=== PATIENT | female | born 1995 | race African-American/Black ===

== ENCOUNTER 2017-08-07 00:10 | Emergency (ER) | payer OTHER ==
[2017-08-07 00:18] VITALS: BP 103/69
--- NOTE | 2017-08-10 10:59 | DR.GENAD ---
HPI - PCP Primary Care Physician: NFD - Complaint/Symptoms Chief Complaint:: OUT BREAK AROUND MOUTH; NO PRIOR HX Self Treatment fo Chief Complaint: NO TX - Source History Provided: Patient - Mode of Arrival Mode of Arrival: Ambulatory - Timing Onset of Chief Complaint: 08/05/17 PMH - PMH Past Medical History: No Past Surgical History: No Surgical History: No History - Family History History of Family Medical Conditions: No - Social History Does patient currently use any type of tobacco product: No Have you used tobacco products in the last 12 months: No Type of Tobacco Use: None Alcohol Use: None Do you use any recreational Drugs:: No Lives With: Alone Lives Where: Home - infectious screening In the last 2 months have you had wt loss of >10#?: NO Have you had fever, night sweats or hemotysis?: No Have you traveled outside the country in the last 6 months?: No Isolation: Standard PE - Vital Signs Vitals: Temperature 98.8 F Pulse Rate 74 Respiratory Rate 20 Blood Pressure 103/69 O2 Sat by Pulse Oximetry 99 - Discharge Plan Disposition: LWBS After Triage Condition: Stable - Follow ups/Referrals Follow ups/Referrals: NFD,None [Primary Care Provider] - 3 days - Instructions
== END 2017-08-07 01:08 | disposition left against medical advice (07) ==
LOC: ER 00:10
DX: K13.79 Other lesions of oral mucosa (principal)
CPT/HCPCS: 99281

== ENCOUNTER 2017-09-07 10:17 | Emergency (ER) | payer OTHER ==
[2017-09-07] MEDS ORDERED: NS 1000 ML 1,000 ML ONE (10:28)
[2017-09-07] MEDS ORDERED: TORADOL 30 MG VIAL ONE (10:28)
--- NOTE | 2017-09-07 10:30 | DR.GENAD ---
HPI - PCP Primary Care Physician: NFD - Complaint/Symptoms Chief Complaint Doctors Comments: Patient states that she has had nausea for three days no vomiting. LMP two weeks ago and normal. PMH neg. Works at [employer]. Admits cigarettes of four per day, denies alcohol or street drugs. Chief Complaint:: PATIENT STATED THAT SHE HAS BEEN VOMITING AND HAVING DIARRHEA FOR THE LAST TWO DAYS. SHE IS NAUSEA AND HAVING ABD. PAIN THAT SHE RATES A 8 ON THE PAIN SCALE. SHE STATE THAT SHE IS UNABLE TO EAT DUE TO BEING SICK AND SHE BELIEVES SHE HAS A VIRUS. - Source History Provided: Patient - Mode of Arrival Mode of Arrival: Ambulatory - Timing Onset of Chief Complaint: 09/05/17 PMH - PMH Past Medical History: No Past Surgical History: No Surgical History: No History - Family History History of Family Medical Conditions: No - Social History Type of Tobacco Use: Cigarettes Does any household member use tobacco: No Alcohol Use: None Do you use any recreational Drugs:: No Lives With: Family Lives Where: Home - infectious screening In the last 2 months have you had wt loss of >10#?: NO Have you had fever, night sweats or hemotysis?: No Have you traveled outside the country in the last 6 months?: No Isolation: Standard ROS - Review of Systems Eyes: No Symptoms Reported ENTM: No Symptoms Reported Respiratoy: No Symptoms Reported Cardiovascular: No Symptoms Reported Gastrointestinal/Abdominal: Abdominal Pain, Diarrhea, Nausea. negative: Vomiting, Food Intolerance Genitourinary: negative: Discharge, Dysuria, Frequency Neurological: No Symptoms Reported Musculoskeletal: No Symptoms Reported, See HPI Integumentary: No Symptoms Reported Hematologic/Lymphatic: No Symptoms Reported Endocrine: No Symptoms Reported Psychiatric: No Symptoms Reported All Other Systems: Reviewed and Negative PE - Vital Signs Vitals: Temperature 98.1 F Pulse Rate 111 Respiratory Rate 20 Blood Pressure 114/75 O2 Sat by Pulse Oximetry 100 - General Limitations: No Limitations General Appearance: Alert, In No Apparent Distress - Head Head Exam: Normal Inspection, Atraumatic - Eyes Eye exam: Normal Appearance, PERRL, EOMI - ENT ENT Exam: Normal Exam External Ear Exam: Normal External Inspection TM/Canal Exam: Bilateral Normal Nose Exam: Normal Nose Exam Mouth Exam: Normal Inspection Throat Exam: Normal Inspection - Neck Neck Exam: Normal Inspection - Respiratory Respiratory Exam: Normal Lung Sounds Bilat Respiratory Exam: Bilateral Clear to Auscultation - Cardiovascular Cardiovascular Exam: Regular Rate, Normal Rhythm - Abdominal Exam Abdominal Exam: Normal Inspection, Normal Bowel Sounds, Soft Abdominal Tenderness: Suprapubic - Extremities Extremities Exam: Normal Inspection, Full ROM - Neurologic Neurological Exam: Alert, Oriented X3, CN II-XII Intact - Psychiatric Psychiatric Exam: Normal Affect - Skin Skin Exam: Warm, Dry, Intact Course - Reevaluation 1st: Unchanged - Education/Counseling Educated On: Treatment, Diagnosis, Prognosis, Needs for Follow Up ROR - Labs Reviewed Laboratory Results Reviewed?: Yes (Influenza negative; low potassium) Result Diagrams: 09/07/17 10:55 09/07/17 10:55 Laboratory: WBC 6.3 X10^3/uL (3.6-10.0) 09/07/17 10:55 RBC 4.54 X10^6/uL (3.5-5.4) 09/07/17 10:55 Hgb 11.8 g/dL (12.0-16.0) L 09/07/17 10:55 Hct 35.9 % (36.0-47.0) L 09/07/17 10:55 MCV 79.1 fL (80.0-100.0) L 09/07/17 10:55 MCH 26.0 pg (27.0-34.0) L 09/07/17 10:55 MCHC 32.9 g/dL (33.0-35.0) L 09/07/17 10:55 RDW 16.9 % (11.6-16.5) H 09/07/17 10:55 Plt Count 294 X10^3/uL (150.0-450.0) 09/07/17 10:55 MPV 7.5 fL (7.4-11.0) 09/07/17 10:55 Neut % 66.9 % (42.0-75.0) 09/07/17 10:55 Lymph % 22.1 % (21.0-51.0) 09/07/17 10:55 Pettis % 9.6 % (0.0-13.0) 09/07/17 10:55 Eos % 1.2 % (0.9-2.9) 09/07/17 10:55 Baso % 0.2 % (0.2-1.0) 09/07/17 10:55 Neut # 4.2 x10^3/uL (2.2-4.8) 09/07/17 10:55 Lymph # 1.4 X10^3/uL (1.3-2.9) 09/07/17 10:55 Pettis # 0.6 x10^3/uL (0.3-0.8) 09/07/17 10:55 Eos # 0.1 x10^3/uL (0.0-0.2) 09/07/17 10:55 Baso # 0.0 X10^3/uL (0.0-0.1) 09/07/17 10:55 Absolute Nucleated RBC 0.0 /100WBC 09/07/17 10:55 Sodium 139 mmol/L (136-145) 09/07/17 10:55 Corrected Sodium TNP 09/07/17 10:55 Potassium 3.4 mmol/L (3.5-5.1) L 09/07/17 10:55 Chloride 105 mmol/L (98-107) 09/07/17 10:55 Carbon Dioxide 22.1 mmol/L (21-32) 09/07/17 10:55 BUN 14 mg/dL (7-18) 09/07/17 10:55 Creatinine 0.73 mg/dL (0.55-1.02) 09/07/17 10:55 Est GFR (MDRD) Af Amer > 60 (>60) 09/07/17 10:55 Est GFR (MDRD) Non-Af > 60 (>60) 09/07/17 10:55 Glucose 86 mg/dL (65-99) 09/07/17 10:55 Calcium 8.9 mg/dL (8.5-10.1) 09/07/17 10:55 Specimen Type Clean catch urine 09/07/17 11:06 Urine Color Yellow (YELLOW) 09/07/17 11:06 Urine Appearance Slightly hazy (CLEAR) 09/07/17 11:06 Urine pH 6.5 (5.0 - 8.0) 09/07/17 11:06 Ur Specific [place] 1.020 (1.000-1.030) 09/07/17 11:06 Urine Protein 2+ (NEGATIVE) 09/07/17 11:06 Urine Glucose (UA) Negative (NEGATIVE) 09/07/17 11:06 Urine Ketones Negative (NEGATIVE) 09/07/17 11:06 Urine Occult Blood Negative (NEGATIVE) 09/07/17 11:06 Urine Nitrite Negative (NEGATIVE) 09/07/17 11:06 Urine Bilirubin Negative (NEGATIVE) 09/07/17 11:06 Urine Urobilinogen 2+ (NORMAL) 09/07/17 11:06 Ur Leukocyte Esterase 1+ (NEGATIVE) 09/07/17 11:06 Urine RBC 0-1 /HPF (NEGATIVE) 09/07/17 11:06 Urine WBC 2-5 /HPF (NEGATIVE) 09/07/17 11:06 Ur Squamous Epith Cells Few /HPF (NEGATIVE) 09/07/17 11:06 Urine Bacteria Trace /HPF (NEGATIVE) 09/07/17 11:06 Urine Mucus Moderate /HPF (NEGATIVE) 09/07/17 11:06 Ur Culture Indicated? No/not indicated 09/07/17 11:06 Influenza Type A (PCR) Negative (NEGATIVE) 09/07/17 10:57 Influenza Type B (PCR) Negative (NEGATIVE) 09/07/17 10:57 - Diagnosis Discharge Problem: Hypokalemia, Mild dehydration Iron deficiency anemia Qualifiers: Iron deficiency anemia type: unspecified iron deficiency Qualified Code(s): D50.9 - Iron deficiency anemia, unspecified - Discharge Plan Condition: Stable - Follow ups/Referrals Follow ups/Referrals: NFD,None [Primary Care Provider] - 3 days - Instructions
[2017-09-07] MEDS ORDERED: NS 1000 ML 1,000 ML IV ONE (10:31)
[2017-09-07] MEDS ORDERED: TORADOL 30 MG VIAL IVP ONE (10:31)
[2017-09-07] MEDS ORDERED: ZOFRAN INJ 4 MG VIAL IVP ONE (10:57)
[2017-09-07 11:02] VITALS: BP 114/75; BMI 19.7
[2017-09-07 11:05] LABS: BASOPHILS % (AUTO) 0.2 % (0.2-1.0); EOSINOPHILS # (AUTO) 0.1 x10^3/uL (0.0-0.2); EOSINOPHILS % (AUTO) 1.2 % (0.9-2.9); HEMATOCRIT 35.9 % (36.0-47.0); HEMOGLOBIN 11.8 g/dL (12.0-16.0); LYMPHOCYTES # (AUTO) 1.4 X10^3/uL (1.3-2.9); LYMPHOCYTES % (AUTO) 22.1 % (21.0-51.0); MEAN CORPUSCULAR HGB CONC 32.9 g/dL (33.0-35.0); MEAN CORPUSCULAR VOLUME 79.1 fL (80.0-100.0); MEAN PLATELET VOLUME 7.5 fL (7.4-11.0); MONOCYTES # (AUTO) 0.6 x10^3/uL (0.3-0.8); MONOCYTES % (AUTO) 9.6 % (0.0-13.0); NEUTROPHILS # (AUTO) 4.2 x10^3/uL (2.2-4.8); NEUTROPHILS % (AUTO) 66.9 % (42.0-75.0); PLATELET COUNT 294 X10^3/uL (150.0-450.0); RED BLOOD COUNT 4.54 X10^6/uL (3.5-5.4); RED CELL DISTRIBUTION WIDTH 16.9 % (11.6-16.5); WHITE BLOOD COUNT 6.3 X10^3/uL (3.6-10.0)
[2017-09-07 11:14] LABS: BLOOD UREA NITROGEN 14 mg/dL (7-18); CALCIUM 8.9 mg/dL (8.5-10.1); CARBON DIOXIDE 22.1 mmol/L (21-32); CHLORIDE 105 mmol/L (98-107); CREATININE 0.73 mg/dL (0.55-1.02); SODIUM 139 mmol/L (136-145); eGFR BLACK RACES > 60 (>60); eGFR NON BLACK RACES > 60 (>60)
[2017-09-07 11:20] LABS: BILIRUBIN,URINE NEGATIVE (NEGATIVE); BLOOD/HEMOGLOBIN,URINE NEGATIVE (NEGATIVE); GLUCOSE, URINE NEGATIVE (NEGATIVE); KETONES,URINE NEGATIVE (NEGATIVE); LEUKOCYTE ESTERASE ,URINE 1+ (NEGATIVE); NITRITES,URINE NEGATIVE (NEGATIVE); PH,URINE 6.5 (5.0 - 8.0); PROTEIN,URINE 2+ (NEGATIVE); UROBILINOGEN,URINE 2+ (NORMAL)
[2017-09-07] MEDS ORDERED: K-LYTE EFFERVESCENT PO ONE (11:28)
[2017-09-07] MEDS ORDERED: K-LYTE EFFERVESCENT ONE (11:32)
[2017-09-07 11:33] LABS: APPEARANCE,URINE SLIGHTLY HAZY (CLEAR); BACTERIA,URINE TRACE /HPF (NEGATIVE); COLOR,URINE YELLOW (YELLOW); MUCUS,URINE MODERATE /HPF (NEGATIVE); RBC,URINE 0-1 /HPF (NEGATIVE); SQUAMOUS EPITHELIAL CELL,UR FEW /HPF (NEGATIVE)
== END 2017-09-07 12:05 | disposition home or self-care (01) ==
LOC: ER 10:26
DX: E87.6 Hypokalemia (principal); E86.0 Dehydration; D50.9 Iron deficiency anemia, unspecified
CPT/HCPCS: 36415; 80048; 81001; 85025; 87502; 96365; 96374; 99282; A4222; J1885

== ENCOUNTER 2022-07-20 06:09 | Inpatient (IN) ==
[2022-07-20] MEDS ORDERED: D5 1/2 NS 1,000 ML 1,000 ML IV ONE (06:31)
[2022-07-20] MEDS ORDERED: D5 1/2 NS 1,000 mL + PITOCIN 20 UNITS/L IV 20 UNITS/1,000 ML BAG IV ONE (06:31)
[2022-07-20] MEDS ORDERED: BETADINE SOLN ONE (06:31)
[2022-07-20] MEDS ORDERED: PITOCIN ONE (06:31)
[2022-07-20] MEDS ORDERED: D5 LR + PITOCIN 10 UNITS/L 10 UNITS/1,000 ML BAG IV ONE (06:31)
[2022-07-20] MEDS: D5 1/2 NS 1,000 ML 1,000 ML IV SCH ×2 (06:45→15:45)
--- NOTE | 2022-07-20 07:03 | DR.OB ---
OB Quick Note - Assessment/Plan Assessment/Plan: L&D 07/20/22 at 6:55am S-No complaint. O-Afebrile,VSS [id number] with good LTV, +accel, no decel. CTX=none CVX=1cm/50%/-1/VTX AROM with clear fluid. IUPC and FSE placed. A-IUP at 39 0/7 weeks for induction anemia P-Begin pitocin induction Anticipate
[2022-07-20] MEDS ORDERED: NUBAIN INJ 20 MG AMP IVP PRN (07:30)
[2022-07-20] MEDS ORDERED: D5 LR + PITOCIN 10 UNITS/L 10 UNITS/1,000 ML BAG IV PRN (07:30)
[2022-07-20] MEDS ORDERED: STADOL INJ IVP PRN (07:30)
[2022-07-20] MEDS ORDERED: MORPHINE SULFATE INJ 2 MG INJ IVP PRN (07:30)
[2022-07-20] MEDS ORDERED: REGLAN INJ 10 MG VIAL IVP PRN (07:30)
[2022-07-20] MEDS ORDERED: PITOCIN IVP ONE (07:30)
[2022-07-20] MEDS ORDERED: PHENERGAN INJ 25 MG IM PRN ×2 (07:30→17:06)
[2022-07-20] MEDS ORDERED: NS 500 ML IV 500 ML IV ONE (08:39)
[2022-07-20] MEDS ORDERED: NS 1,000 ML IV 500 ML IV ONE (08:40)
[2022-07-20] MEDS: LR 1,000 ML IV 1,000 ML IV ONE ×2 (08:42→10:25)
[2022-07-20] MEDS ORDERED: STADOL INJ ONE (10:14)
[2022-07-20] MEDS ORDERED: NAROPIN EPIDURAL 0.2% 100 ML ONE (10:22)
[2022-07-20] MEDS ORDERED: FENTANYL VIAL INJ 100 mcg ONE (10:22)
[2022-07-20] MEDS ORDERED: ZOFRAN INJ 4 MG VIAL ONE ×2 (10:40→15:28)
--- NOTE | 2022-07-20 12:05 | DR.OB ---
OB Quick Note - Assessment/Plan Assessment/Plan: L&D 07/20/22 at 11:55am Pitocin=12mu/min. S-No complaint except CTX. O-Afebrile,VSS BTQ=430 with good LTV, +accel, no decel. CTX=q 1 1/2 to 4 min., about 35-55mmHg CVX=2cm/75%/-1 A-IUP at 39 0/7 weeks for induction anemia P-Cont. pitocin induction Anticipate
[2022-07-20] MEDS ORDERED: LR 1,000 ML IV 1,000 ML IV ONE (13:32)
--- NOTE | 2022-07-20 17:05 | DR.OB ---
OB Quick Note - Assessment/Plan Assessment/Plan: Delivery Note TIRE BUFFER 07/20/22 at 4:52pm Patient complete and pushing. Head delivered over intact perineum. No nuchal cord. Nose and mouth bulb suctioned. Body delivered over intact perineum. Cord clamped x 2 and cut. Infant handed to attendant. Cord sent for gases. Placenta delivered spontaneously / intact / 3 vessel cord. No CVX / vaginal / perineal tears noted. Viable female infant delivered by , VTX/OA, wt=5'15" and 8/9, stable to NBN. Mother stable to RR. AVN=[id number].
[2022-07-20] MEDS: D5 1/2 NS 1,000 ML 1,000 ML with PITOCIN 20 UNITS IV SCH ×2 (17:43)
[2022-07-20] MEDS ORDERED: DERMOPLAST PAIN RELIEF SPRAY TOP PRN (17:52)
[2022-07-20] MEDS ORDERED: MILK OF MAGNESIA PO PRN (17:52)
[2022-07-20] MEDS ORDERED: AMBIEN PO PRN (17:52)
[2022-07-20] MEDS ORDERED: ADACEL or BOOSTRIX TDaP VACCINE IM ONE (17:52)
[2022-07-20] MEDS ORDERED: PHENERGAN INJ 25 MG IM ONE (18:10)
[2022-07-21] MEDS: MOTRIN TAB 800 MG PO PRN ×2 (01:41→11:47)
[2022-07-21 05:29] LABS: HEMATOCRIT 30.5 % (36.0-47.0); HEMOGLOBIN 10.4 g/dL (12.0-16.0)
[2022-07-21] MEDS: D5 1/2 NS 1,000 ML 1,000 ML with PITOCIN 20 UNITS IV SCH ×4 (08:07→11:42)
[2022-07-21] MEDS ORDERED: PRENATAL PLUS PO SCH (09:00)
[2022-07-21 15:35] VITALS: BP 135/73
[2022-07-21] MEDS ORDERED: FERROUS GLUCONATE PO SCH (17:00)
== END 2022-07-21 18:25 | disposition home or self-care (01) | DRG 807 ==
LOC: LD 06:09 → MED/SURG 17:53
PROVIDERS: ADMIT Specialist; ATTEND Specialist